=== PATIENT | female | born 1950 | race Caucasian/White ===

== ENCOUNTER 2018-01-13 03:57 | Inpatient (IN) | payer OTHER, BC ==
[2018-01-13 04:17] VITALS: BMI 42.4
--- NOTE | 2018-01-13 04:24 | PDOC ---
Attending Attestation - HPI HPI: 01/13/18 04:57 Patient is a 67 year old female with a significant past medical history of high cholesterol, hypertension, who presents to the ED with complaints of diarrhea and associated nausea that began earlier this week. Patient reports being prescribed new medication by her PCP which she states is the reason for her symptoms. She reports experiencing associated nausea, throat tightness and chest tightness after being recently being prescribed losartan, prompting her to come into the ED for further evaluation due to her concern. Denies chest pain, Sob. Denies nausea, vomiting. Denies fevers, chills. Denies contact with sick individuals, out of state travelling. Denies trauma to affected area. Denies dysuria, hematuria. Denies constipation, diarrhea. Denies any other symptoms. Allergies: None Social history: No smoking. No alcohol. No illicit drugs. Surgical history: None. PMD: Dr. Delaney <Mina Ernst - Last Filed: 01/13/18 04:57> - Resident Resident Name: Paul Crane - ED Attending Attestation I have performed the following: I have examined & evaluated the patient, The case was reviewed & discussed with the resident, I agree w/resident's findings & plan, Exceptions are as noted - Physicial Exam PE: 01/13/18 19:21 *Physical Exam General Appearance: Yes: Appropriately Dressed. No: Apparent Distress, Intoxicated HEENT: positive: EOMI, ARNOL, Normal ENT Inspection, Normal Voice, TMs Normal, Pharynx Normal. negative: Pale Conjunctivae, Photophobia, Scleral Icterus (R), Scleral Icterus (L) Neck: positive: Trachea midline, Normal Thyroid, Supple. negative: Tender, Rigid, Carotid bruit, Stridor, Lymphadenopathy (R), Lymphadenopathy (L), Thyromegaly Respiratory/Chest: positive: Lungs Clear, Normal Breath Sounds. negative: Chest Tender, Respiratory Distress, Accessory Muscle Use, Labored Respiration, RES, Crackles, Rales, Rhonchi, Stridor, Wheezing, Dullness Cardiovascular: positive: Regular Rhythm, Regular Rate, S1, S2. negative: Edema , JVD, Murmur, Bradycardia, Tachycardia Vascular Pulses: Dorsalis-Pedis (R): 2+, Doralis-Pedis (L): 2+ Gastrointestinal/Abdominal: positive: Normal Bowel Sounds, Flat, Soft. mild diffuse tenderness negative: Organomegaly, Pulsatile Mass, Increased Bowel Sounds, Decreased BS, Distended, Guarding, Rebound, Hernia, Hepatomegaly, Spleenomegaly Lymphatic: negative: Adenopathy, Tenderness Musculoskeletal: positive: Normal Inspection. negative: CVA Tenderness, Decreased Range of Motion Extremity: positive: Normal Capillary Refill, Normal Inspection, Normal Range of Motion, Pelvis Stable. negative: Tender, Pedal Edema, Swelling, Erythema Integumentary: positive: Normal Color, Dry, Warm. 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 negative: EOM Palsy, Facial Droop, Sensory Deficit - Medical Decision Making 01/13/18 19:22 Pt admitted for further care and evaluation. <Eris Long - Last Filed: 01/13/18 19:22>
[2018-01-13] MEDS ORDERED: SODIUM CHLORIDE 0.9% 500 ML INFUS.BAG IV ONE (04:32)
--- NOTE | 2018-01-13 04:36 | PDOC ---
History of Present Illness - General Chief Complaint: Pain Stated Complaint: ABD PAIN History Source: Patient Exam Limitations: No Limitations - History of Present Illness Initial Comments: The pt is a 67F with a history of HTN who presents for abdominal pain, nausea, and new onset diarrhea (x1 day). She reports that her PCP modified her HTN regimen 01/08/2018 to Valsartan and Triamterene-HCTZ. She took the medication for one day and began to experience throat swelling, chest tightness, and epigastric abdominal pain. She stopped taking these and her throat/chest tightness resolved. However, her epigastric discomfort persisted, continues to be associated with N, no emesis, and one day of watery loose stools without blood. She endorses dry mouth. She denies fevers/chills, current KEEN, CP, SOB, chest/throat tightness. Of note, once she stopped taking her new regimen she did not restart her Atenolol regimen and does not recall the dose. 01/13/18 04:35 Past History - Past Medical History Allergies/Adverse Reactions: Allergies Allergy/AdvReac Type Severity Reaction Status Date / Time No Known Drug Allergies Allergy Verified 01/13/18 04:16 Home Medications: Ambulatory Orders Atenolol [Tenormin -] 125 mg PO DAILY 05/22/15 Fluticasone Prop 0.05% Nasal [Flonase -] 2 spray NS PRN PRN 05/22/15 Montelukast Na [Singulair -] 10 mg PO DAILY 05/22/15 Oxycodone HCl/Acetaminophen [Percocet 5-325 mg Tablet] 1 tab PO Q6H PRN #60 tablet 05/24/15 Anemia: No Asthma: No Cancer: No Cardiac Disorders: No CVA: No COPD: No CHF: No Dementia: No Diabetes: No GI Disorders: No Disorders: No HTN: Yes Hypercholesterolemia: Yes Liver Disease: No Seizures: No Thyroid Disease: No - Surgical History Abdominal Surgery: No Appendectomy: No Cardiac Surgery: No Cholecystectomy: No Lung Surgery: No Neurologic Surgery: No Orthopedic Surgery: No - Suicide/Smoking/Psychosocial Hx Smoking Status: No Smoking History: Never smoked Have you smoked in the past 12 months: No Number of Cigarettes Smoked Daily: 0 If you are a former smoker, when did you quit?: 1999 Information on smoking cessation initiated: No Hx Alcohol Use: No Drug/Substance Use Hx: No Substance Use Type: None Hx Substance Use Treatment: No Review of Systems - Review of Systems Able to Perform ROS?: Yes Is the patient limited Lebanese proficient: No Constitutional: Yes: Loss of Appetite (2/2 nausea). No: Chills, Fever, Weakness HEENTM: Yes: See HPI. No: Blurred Vision, Double Vision, Nose Congestion Respiratory: No: Cough, Shortness of Breath Cardiac (ROS): No: Chest Pain, Lightheadedness, Syncope ABD/GI: Yes: Diarrhea, Nausea. No: Rectal Bleeding, Vomiting : No: Dysuria, Discharge, Hematuria Musculoskeletal: No: Joint Pain, Muscle Pain Integumentary: No: Pruritus, Rash Neurological: No: Headache, Numbness, Dizziness Psychiatric: No: Anxiety, Depression Endocrine: No: Intolerance to Cold, Intolerance to Heat Hematologic/Lymphatic: No: Blood Clots, Easy Bruising *Physical Exam - Vital Signs Last Vital Signs Temp Pulse Resp BP Pulse Ox 98.4 F 65 18 175/98 97 01/13/18 04:06 01/13/18 04:06 01/13/18 04:06 01/13/18 04:06 01/13/18 04:06 - Physical Exam General Appearance: Yes: Obese. No: Apparent Distress HEENT: positive: EOMI, RANOL. negative: Scleral Icterus (R), Scleral Icterus (L) , Pharyngeal Erythema, Rhinorrhea Neck: negative: Tender, Supple, Lymphadenopathy (R), Lymphadenopathy (L) Respiratory/Chest: positive: Lungs Clear, Normal Breath Sounds. negative: Chest Tender, Respiratory Distress Cardiovascular: positive: Regular Rhythm, Regular Rate, Edema (LLE 1+ pitting edema to [place]). negative: Murmur Vascular Pulses: Femoral (R): 2+, Femoral (L): 2+, Carotid (R): 2+, Carotid (L) : 2+, Dorsalis-Pedis (R): 2+, Doralis-Pedis (L): 2+ Gastrointestinal/Abdominal: positive: Normal Bowel Sounds, Tender (generalized mild TTP), Protuberent. negative: Guarding, Rebound Integumentary: positive: Normal Color, Dry, Warm. 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 DDx: KEITH, AIN, UTI, HTN urgency, ACS; less likely low grade SBO; gastritis ED Course The patient was found to have KEITH (Cr 3.4 from 0.6); and Uremia (BUN 54). A CT A &P w/o contrast will be obtained as well as an ECG and Trop I. The patient also experienced emesis x1, will give Zofran 4mg IV x1 Dispo: The patient will be admitted for evaluation of KEITH and Uremia 01/13/18 06:06 *DC/Admit/Observation/Transfer Diagnosis at time of Disposition: KEITH (acute kidney injury) - Discharge Dispostion Condition at time of disposition: Fair Decision to Admit order: Yes - Referrals - Patient Instructions - Post Discharge Activity
[2018-01-13 04:58] LABS: HEMATOCRIT 44.4 % (32.4-45.2); HEMOGLOBIN 14.5 GM/dL (10.7-15.3); MCH 26.7 pg (25.7-33.7); MCHC 32.7 g/dl (32.0-36.0); MEAN CELL VOLUME 81.6 fl (80-96); MEAN PLT VOLUME 9.3 fl (7.5-11.1); PLATELET COUNT 250 K/MM3 (134-434); RBC 5.44 M/mm3 (3.60-5.2); RDW 14.5 % (11.6-15.6); WHITE BLOOD COUNT 7.5 K/mm3 (4.0-10.0)
[2018-01-13] MEDS ORDERED: MAG HYDROX/AL HYDROX/SIMETH 30 ML UNIT-DOSE CUP PO ONE (05:00)
[2018-01-13] MEDS ORDERED: MAG HYDROX/AL HYDROX/SIMETH 30 ML UNIT-DOSE CUP ONE (05:04)
[2018-01-13] MEDS ORDERED: ONDANSETRON 4 MG/2 ML VIAL IVPUSH ONE (05:20)
[2018-01-13] MEDS ORDERED: FAMOTIDINE 20 MG/50 ML IVPB 20 MG/50 ML MG IVPB ONE ×2 (05:20→05:32)
[2018-01-13 05:22] LABS: ANION GAP 7 (8-16); BLOOD UREA NITROGEN 54 mg/dL (7-18); CALCIUM 9.3 mg/dL (8.5-10.1); CHLORIDE 104 mmol/L (98-107); CO2 30 mmol/L (21-32); CREATININE 3.7 mg/dL (0.55-1.02); GLUCOSE,RANDOM 89 mg/dL (74-106); POTASSIUM 4.6 mmol/L (3.5-5.1); SODIUM 141 mmol/L (136-145)
[2018-01-13] MEDS ORDERED: ONDANSETRON 4 MG/2 ML VIAL ONE ×2 (05:27→10:08)
[2018-01-13 06:29] LABS: URINE APPEARANCE CLEAR; URINE BILIRUBIN NEGATIVE (<2.0 mg/dL); URINE COLOR STRAW; URINE GLUCOSE (UA) NEGATIVE (NEGATIVE); URINE KETONE NEGATIVE (NEGATIVE); URINE LEUK ESTERASE NEGATIVE (NEGATIVE); URINE NITRITE NEGATIVE (NEGATIVE); URINE PROTEIN NEGATIVE (NEGATIVE); URINE UROBILINOGEN NEGATIVE mg/dL (0.2-1.0)
--- NOTE | 2018-01-13 07:17 | HP ---
CHIEF COMPLAINT: Nausea, diarrhea PCP: Dr. Delaney HISTORY OF PRESENT ILLNESS: 67 year-old female with a PMH significant for HTN and HLD who presented to the ED with abdominal pain, nausea, and diarrhea. On 01/08/18 the patient's PCP modified her medication regimen by stopping atenolol and starting Verapamil and Triamterene-HCTZ. She took the medication for one day and experienced throat swelling, chest tightness, epigastric abdominal pain, and nausea. She stopped taking the medications and all of the symptoms resolved except the epigastric pain and nausea which continues. Patient also reports one day of watery, loose, non-bloody stools. Patient denies fever, sweats, chills. ER course was notable for: (1) BP 175/98-->130/80 (2) BUN/Cr 54/3.7 (3) UA negative Recent Travel: PAST MEDICAL HISTORY: Hypertension Hyperlipidemia PAST SURGICAL HISTORY: None reported Social History: Smoking: Never Alcohol: no Drugs: no Family History: Allergies No Known Drug Allergies Allergy (Verified 01/13/18 04:16) HOME MEDICATIONS: Per [facility] and patient: Verapramil SR 240mg daily - *new prescription Triamterene/HCTZ 37.5/25 daily - *new prescription Etodolac 400mg BID Atenolol/chlorthalidone 100/25 1/2 tab daily (stopped) Singulair 10mg QD REVIEW OF SYSTEMS CONSTITUTIONAL: Absent: fever, chills, diaphoresis, generalized weakness, malaise, loss of appetite, weight change HEENT: Absent: rhinorrhea, nasal congestion, throat pain, throat swelling, difficulty swallowing, mouth swelling, ear pain, eye pain, visual changes CARDIOVASCULAR: Absent: chest pain, syncope, palpitations, irregular heart rate, lightheadedness , peripheral edema RESPIRATORY: Absent: cough, shortness of breath, dyspnea with exertion, orthopnea, wheezing, stridor, hemoptysis GASTROINTESTINAL: +abdominal pain, nausea, diarrhea Absent: abdominal pain, abdominal distension, nausea, vomiting, diarrhea, constipation, melena, hematochezia GENITOURINARY: Absent: dysuria, frequency, urgency, hesitancy, hematuria, flank pain, genital pain MUSCULOSKELETAL: Absent: myalgia, arthralgia, joint swelling, back pain, neck pain SKIN: Absent: rash, itching, pallor HEMATOLOGIC/IMMUNOLOGIC: Absent: easy bleeding, easy bruising, lymphadenopathy, frequent infections ENDOCRINE: Absent: unexplained weight gain, unexplained weight loss, heat intolerance, cold intolerance NEUROLOGIC: Absent: headache, focal weakness or paresthesias, dizziness, unsteady gait, seizure, mental status changes, bladder or bowel incontinence PSYCHIATRIC: Absent: anxiety, depression, suicidal or homicidal ideation, hallucinations. PHYSICAL EXAMINATION Vital Signs - 24 hr 01/13/18 01/13/18 04:06 06:18 Temperature 98.4 F Pulse Rate 65 Pulse Rate [ 52 L Radial] Respiratory 18 16 Rate Blood Pressure 175/98 Blood Pressure 130/80 [Right Arm] O2 Sat by Pulse 97 97 Oximetry (%) GENERAL: Awake, alert, and fully oriented, in no acute distress. LUNGS: Breath sounds equal, clear to auscultation bilaterally. No wheezes, and no crackles. No accessory muscle use. HEART: Regular rate and rhythm, normal S1 and S2 ABDOMEN: Soft, nontender, not distended, normoactive bowel sounds MUSCULOSKELETAL: Normal range of motion at all joints. No bony deformities or tenderness. No CVA tenderness. UPPER EXTREMITIES: 2+ pulses, warm, well-perfused. No cyanosis. No clubbing. No peripheral edema. LOWER EXTREMITIES: 2+ pulses, warm, well-perfused. No calf tenderness. Trace bilateral edema NEUROLOGICAL: Cranial nerves II-XII intact. Normal speech. Normal gait. PSYCHIATRIC: Cooperative. Good eye contact. Appropriate mood and affect. SKIN: Warm, dry, normal turgor, no rashes or lesions noted, normal capillary refill. Laboratory Results - last 24 hr 01/13/18 01/13/18 01/13/18 04:47 04:47 06:10 WBC 7.5 RBC 5.44 H Hgb 14.5 Hct 44.4 MCV 81.6 MCH 26.7 MCHC 32.7 RDW 14.5 Plt Count 250 MPV 9.3 Sodium 141 Potassium 4.6 Chloride 104 Carbon Dioxide 30 Anion Gap 7 L BUN 54 H Creatinine 3.7 H Creat Clearance w eGFR 12.22 Random Glucose 89 Calcium 9.3 Urine Color Straw Urine Appearance Clear Urine pH 7.0 Ur Specific [place] 1.010 Urine Protein Negative Urine Glucose (UA) Negative Urine Ketones Negative Urine Blood Negative Urine Nitrite Negative Urine Bilirubin Negative Urine Urobilinogen Negative Ur Leukocyte Esterase Negative ASSESSMENT/PLAN: 67 year-old female with a PMH significant for HTN and HLD who presented to the ED with 5 days of abdominal pain, nausea and 1 day of diarrhea. Admitted for KEITH. KEITH --review of home med list (see above): HCTZ, chlorthalidone, and high dose NSAIDS daily --Cr 3.7, last available Cr 0.7 (2011) --urine studies pending --hold diuretics, NSAIDS, nephrotoxic agents --IV fluids --renal consult Hypertension --patient has been off all anti-hypertensives for about 5 days; stopped atenolol/chlorthalidone and started Valsartan and Trimaterine/HCTZ; that's when symptoms started --start atenolol 50mg daily --defer to Dr. Castro/Rhett for further management of BP Abdominal pain --afebrile, no leukocytosis --CT done, pending dictation NPO Visit type - Emergency Visit Emergency Visit: Yes ED Registration Date: 01/13/18 Care time: The patient presented to the Emergency Department on the above date and was hospitalized for further evaluation of their emergent condition. - New Patient This patient is new to me today: Yes Date on this admission: 01/13/18 - Critical Care Critical Care patient: No Hospitalist Screening - Colonoscopy Questionnaire Colonoscopy Questionnaire: Colonoscopy Questionnaire - Patient: 50 - 75 years old and never had a screening colonoscopy: Unknown History of colon or rectal polyps, or CA: Unknown History of IBD, Crohn's disease or UC: Unknown History of abdominal radiation therapy as a child: Unknown - Relative: 1 with colon or rectal CA, or polyps at age 60 or younger: Unknown Colon or rectal CA diagnosed at age 45 or younger: Unknown Multiple relatives with colon or rectal CA: Unknown - Outcome: Screening Result: Negative Screen
[2018-01-13] MEDS ORDERED: SODIUM CHLORIDE 1,000 ML IV STA (07:48)
--- NOTE | 2018-01-13 08:45 | PDOC ---
*Physical Exam - Vital Signs Last Vital Signs Temp Pulse Resp BP Pulse Ox 98.4 F 52 L 16 130/80 97 01/13/18 04:06 01/13/18 06:18 01/13/18 06:18 01/13/18 06:18 01/13/18 06:18 ED Treatment Course - LABORATORY CBC & Chemistry Diagram: 01/13/18 04:47 01/13/18 04:47 - ADDITIONAL ORDERS Additional order review: Laboratory Results 01/13/18 01/13/18 06:10 04:47 Sodium 141 Potassium 4.6 Chloride 104 Carbon Dioxide 30 Anion Gap 7 L BUN 54 H Creatinine 3.7 H Creat Clearance w eGFR 12.22 Random Glucose 89 Calcium 9.3 Troponin I < 0.02 Urine Color Straw Urine Appearance Clear Urine pH 7.0 Ur Specific [place] 1.010 Urine Protein Negative Urine Glucose (UA) Negative Urine Ketones Negative Urine Blood Negative Urine Nitrite Negative Urine Bilirubin Negative Urine Urobilinogen Negative Ur Leukocyte Esterase Negative 01/13/18 04:47 RBC 5.44 H MCV 81.6 MCHC 32.7 RDW 14.5 MPV 9.3 - Medications Given in the ED: ED Medications Discontinued Medications Generic Name Dose Route Start Last Admin Trade Name Freq PRN Reason Stop Dose Admin Al Hydroxide/Mg Hydroxide 30 ml 01/13/18 05:00 01/13/18 05:03 Mylanta Oral Suspension - PO 01/13/18 05:01 30 ml ONCE ONE Administration Famotidine/Sodium Chloride 20 mg in 50 mls @ 100 mls/hr 01/13/18 05:20 05:31 Pepcid 20 Mg Premixed Ivpb - IVPB 01/13/18 05:49 100 mls/hr ONCE ONE Administration Ondansetron HCl 4 mg 01/13/18 05:20 01/13/18 05:31 Zofran Injection IVPUSH 01/13/18 05:21 4 mg ONCE ONE Administration Sodium Chloride 1,000 ml 01/13/18 04:32 01/13/18 04:51 Normal Saline - IV 01/13/18 04:33 1,000 ml ONCE ONE Administration Medical Decision Making - Medical Decision Making 01/13/18 08:44 CT Read: Possible stone : Perinephric stranding with mild dilatation of the right ureter and a possible nonobstructing stone on the left distally as described above. Consider CT urogram or retrograde study. Findings on the right may represent a recently passed stone, extrinsic compression by a bulky uterus. Probable cyst within the left adnexa as described above, consider ultrasound imaging as clinically warranted. *DC/Admit/Observation/Transfer Diagnosis at time of Disposition: KEITH (acute kidney injury) - Discharge Dispostion Condition at time of disposition: Fair - Referrals - Patient Instructions - Post Discharge Activity
[2018-01-13] MEDS ORDERED: SODIUM CHLORIDE 1,000 ML IV SCH (08:48)
[2018-01-13] MEDS ORDERED: ACETAMINOPHEN 325 MG TABLET (FP) ONE (09:08)
[2018-01-13] MEDS: ACETAMINOPHEN 325 MG TABLET (FP) PO PRN ×2 (09:10→15:07)
[2018-01-13] MEDS ORDERED: ONDANSETRON 4 MG/2 ML VIAL IVPUSH PRN (09:26)
[2018-01-13] MEDS: HEPARIN NA (PORCINE) 5,000 UNITS/ML 1ML VIAL SQ SCH ×3 (10:00→21:05)
[2018-01-13] MEDS ORDERED: PANTOPRAZOLE 40 MG TABLET (FP) ONE (10:07)
[2018-01-13] MEDS ORDERED: MONTELUKAST NA 10 MG TABLET ONE (10:07)
[2018-01-13] MEDS: PANTOPRAZOLE 40 MG TABLET (FP) PO SCH (10:10)
[2018-01-13] MEDS: MONTELUKAST NA 10 MG TABLET PO SCH ×2 (10:10→21:05)
[2018-01-13 10:30] LABS: URINE CREATININE 38.3 mg/dL (20-320)
[2018-01-13] MEDS ORDERED: ATENOLOL 25 MG TABLET (FP) ONE ×2 (10:40→10:41)
[2018-01-13] MEDS: ATENOLOL 50 MG TABLET (FP) PO SCH (10:45)
--- NOTE | 2018-01-13 10:45 | CON.NEP ---
Consult Consult Specialty:: Nephrology Reason for Consultation:: KEITH - History of Present Illness Chief Complaint: nausea,vomiting, and diarrhea History of Present Illness: MS. Strong is a 67 y/o female who presents to [facility] ER with complaints of nausea/ diarrhea and abdominal pain for a few days. Patient states that her PCP started her on a new blood pressure medicine - Triamterene/HCTZ last friday and shortly after she started to develop adverse reactions: she said her tongue started to swell, her chest felt tight and she started having these GI symptoms. The swelling and chest pain has since subsided, however, the GI symptoms are still persisting. In the ER, her lbs were notable for a BUN/CR: of 54/3.7, which is new to the patient. IN review of [employer] her Cr back in 2011 was 0.7 and patient states she gets blood test every 6 months and has never been told of this issue. She also notes that her leg seems to be a bit more swollen than usual. She denies any CP/SOB/ and her abdominal pain has subsided just feeling slightly queasy. - History Source History Provided By: Patient - Past Medical History CLERICAL ADMINISTRATIVE ASSISTANT: Yes: Migraine Cardio/Vascular: Yes: HTN, Hyperlipdemia Psych: Yes: Depression (does not take any meds for depression ) - Past Surgical History Past Surgical History: Yes: Arthrosocopy (R shoulder ) - Alcohol/Substance Use Hx Alcohol Use: No History of Substance Use: reports: None - Smoking History Smoking history: Never smoked Have you smoked in the past 12 months: No Aproximately how many cigarettes per day: 0 If you are a former smoker, when did you quit?: 1999 - Social History Usual Living Arrangement: Alone ADL: Independent 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 Place of : [facility] Home Medications - Allergies Allergies/Adverse Reactions: Allergies Allergy/AdvReac Type Severity Reaction Status Date / Time No Known Drug Allergies Allergy Verified 01/13/18 04:16 - Home Medications Home Medications: Ambulatory Orders Atenolol [Tenormin -] 50 mg PO ASDIR 05/22/15 Montelukast Na [Singulair -] 10 mg PO DAILY 05/22/15 Atorvastatin Ca [Lipitor] 20 mg PO HS 01/13/18 Etodolac [Etodolac ER] 400 mg PO ASDIR 01/13/18 Family Disease History - Family Disease History Family Disease History: Heart Disease: Father (father is ), Other: Mother (mother past from alzheimers) Other Family History: family history of breast ca. Review of Systems - Review of Systems Cardiovascular: denies: Chest Pain, Palpitations Respiratory: denies: Cough Gastrointestinal: reports: Abdominal Pain (more epigastric region), Nausea, Vomiting (had 1 episode in the ER) Genitourinary: denies: Dysuria, Hematuria Neurological: reports: Headache Nephrology Consult - Height Height: 1.5 m - Weight Weight: 95.254 kg - BMI Body Mass Index (BMI): 42.4 - Lab Results CBC,BMP: CBC, BMP 01/13/18 04:47 01/13/18 04:47 Anion Gap: Anion Gap Anion Gap 7 (8-16) L 01/13/18 04:47 - Physical Examination Vital Signs: Vital Signs Temperature 98.4 F 01/13/18 04:06 Pulse Rate 48 L 01/13/18 10:15 Respiratory Rate 16 01/13/18 06:18 Blood Pressure 136/78 01/13/18 10:15 O2 Sat by Pulse Oximetry (%) 95 01/13/18 10:15 Constitutional: Yes: No Distress Cardiovascular: Yes: Regular Rate and Rhythm, S1, S2. No: Murmur Respiratory: Yes: CTA Bilaterally Gastrointestinal: Yes: Normal Bowel Sounds, Soft. No: Tenderness Edema: Yes Edema: LLE: Trace, RLE: Trace Neurological: Yes: Alert Problem List - Problems (1) Acute kidney injury Code(s): N17.9 - ACUTE KIDNEY FAILURE, UNSPECIFIED (2) Hypertension Code(s): I10 - ESSENTIAL (PRIMARY) HYPERTENSION (3) Abdominal pain Code(s): R10.9 - UNSPECIFIED ABDOMINAL PAIN Assessment/Plan KEITH: -will check RUTHY and ANCA -repeat U/A tomorrow -c/w fluids -monitor electrolytes
--- NOTE | 2018-01-13 11:21 | EKG ---
Test Reason : Blood Pressure : / mmHG Vent. Rate : 052 BPM Atrial Rate : 052 BPM P-R Int : 176 ms QRS Dur : 084 ms QT Int : 452 ms P-R-T Axes : 030 -15 035 degrees QTc Int : 420 ms SINUS BRADYCARDIA OTHERWISE NORMAL ECG Confirmed by MD HANNAH, PAULA ([id number]) on 01/13/2018 11:20:42 AM Referred By: Confirmed By:PAULA YOUNG MD
[2018-01-13] MEDS: SODIUM CHLORIDE 1,000 ML IV SCH (16:49)
--- NOTE | 2018-01-13 16:49 | PN ---
Teaching Attending Note Name of Resident: Marialuisa Belcher (Nephrology) ATTENDING PHYSICIAN STATEMENT I saw and evaluated the patient. I reviewed the resident's note and discussed the case with the resident. I agree with the resident's findings and plan as documented. Nephrology Pt is a 67 year old female with pmhx of HTN and migraine who presents to the ER with abdominal pain and diarrhea. She was found to be in acute renal failure and I was called to evaluate her. She denies shortness of breath. She denies history of CKD. He does use nsaids. She was started on valsartana nd triamterene with hctz. She had an allergic reaction to them associated with GI symptoms. The shortness of breath and chest tightness improved but her loose stools persisted. pmhx migraine htn ros loose stool allergies hctz triamterene family hx non contrib Current Medications Generic Name Dose Route Start Last Admin Trade Name Freq PRN Reason Stop Dose Admin Acetaminophen/Butalbital/Caffeine 1 tablet 01/13/18 16:33 Fioricet - PO Q6H PRN HEADACHE Atenolol 50 mg 01/13/18 10:15 01/13/18 10:45 Tenormin - PO 50 mg DAILY ERIKA Administration Heparin Sodium (Porcine) 5,000 unit 01/13/18 09:00 01/13/18 14:31 Heparin - SQ 5,000 unit TID ERIKA Administration Sodium Chloride 1,000 mls @ 50 mls/hr 01/13/18 16:15 Normal Saline - IV ASDIR ERIKA Montelukast Sodium 10 mg 01/13/18 10:00 01/13/18 10:10 Singulair - PO 10 mg HS ERIKA Administration Ondansetron HCl 4 mg 01/13/18 09:26 01/13/18 10:05 Zofran Injection IVPUSH 4 mg Q6H PRN Administration NAUSEA Pantoprazole Sodium 40 mg 01/13/18 10:00 01/13/18 10:10 Protonix - PO 40 mg DAILY ERIKA Administration Laboratory Tests 04/24/110801/13/18 07:32 11:20 04:47 RBC 5.44 H Creatinine 0.6 D 0.7 BUN Urine Protein Urine Blood Ur Random Sodium Urine Creatinine 01/13/18 01/13/18 01/13/18 04:47 06:10 09:32 RBC Creatinine 3.7 H BUN 54 H Urine Protein Negative Urine Blood Negative Ur Random Sodium 89 Urine Creatinine 38.3 Last Vital Signs Temp Pulse Resp BP Pulse Ox 98.2 F 56 L 20 159/80 95 01/13/18 15:49 01/13/18 15:49 01/13/18 15:49 01/13/18 15:49 01/13/18 13:20 cxr reviewed cardio s1s2 reg pulm clear GI soft, obese ext neg edema neuro awake and alert Impression 1. KEITH 2. HTN 3. allergic reaction 4. migraine 5. nephrolithiasis Plan - cont with fluids - repeat labs in am - check renal ultrasound - repeat ua - hold diuretics - will check nilsa and anca - attempt to obtain outpt labs from last week - will follow Dr Brewer
[2018-01-13 20:16] LABS: URINE APPEARANCE CLEAR; URINE BILIRUBIN NEGATIVE (<2.0 mg/dL); URINE COLOR STRAW; URINE GLUCOSE (UA) NEGATIVE (NEGATIVE); URINE KETONE NEGATIVE (NEGATIVE); URINE LEUK ESTERASE NEGATIVE (NEGATIVE); URINE NITRITE NEGATIVE (NEGATIVE); URINE PROTEIN NEGATIVE (NEGATIVE); URINE UROBILINOGEN NEGATIVE mg/dL (0.2-1.0)
[2018-01-14] MEDS: ACETAMINOPHEN/CAFFEINE/BUTALBITAL 1 TAB PO PRN ×3 (02:58→21:07)
[2018-01-14] MEDS: HEPARIN NA (PORCINE) 5,000 UNITS/ML 1ML VIAL SQ SCH ×3 (05:46→21:09)
[2018-01-14 08:27] LABS: EOS % 2.7 % (0-4.5); HEMOGLOBIN 13.9 GM/dL (10.7-15.3); LYMPH % 24.3 % (8-40); MCH 27.3 pg (25.7-33.7); MCHC 33.1 g/dl (32.0-36.0); MEAN CELL VOLUME 82.5 fl (80-96); MEAN PLT VOLUME 9.7 fl (7.5-11.1); MONO % 7.7 % (3.8-10.2); NEUT % 64.3 % (42.8-82.8); PLATELET COUNT 226 K/MM3 (134-434); RBC 5.09 M/mm3 (3.60-5.2); RDW 14.5 % (11.6-15.6); WHITE BLOOD COUNT 6.3 K/mm3 (4.0-10.0)
[2018-01-14 08:39] LABS: INR 1.13 (0.82-1.09); PROTHROMBIN TIME (PATIENT) 12.8 SEC (9.7-13.0)
[2018-01-14 08:42] LABS: ACTIVATED PTT 34.1 SECONDS (25.2-36.5)
[2018-01-14 08:52] LABS: ALBUMIN 3.1 g/dl (3.4-5.0); ANION GAP 8 (8-16); BLOOD UREA NITROGEN 39 mg/dL (7-18); CALCIUM 8.2 mg/dL (8.5-10.1); CHLORIDE 109 mmol/L (98-107); CO2 27 mmol/L (21-32); GLUCOSE,RANDOM 72 mg/dL (74-106); MAGNESIUM 2.6 mg/dL (1.8-2.4); SGOT/AST 21 U/L (15-37); SGPT/ALT 26 U/L (12-78); SODIUM 144 mmol/L (136-145)
[2018-01-14 08:54] LABS: ALK PHOS 55 U/L (45-117); BILIRUBIN,TOTAL 0.7 mg/dL (0.2-1.0); TOT PROT 6.3 g/dl (6.4-8.2)
--- NOTE | 2018-01-14 09:32 | PN ---
Progress Note, Physician Chief Complaint: high BUN/Cr History of Present Illness: no acute events overnight. patient states that her GI symptoms are resolving- she is not experiencing anymore nausea or diarrhea. She had a slight headache overnight- seems to be in concordance whenever her blood pressures rise. She is not having any pain or trouble urinating. she denies N/V/chest pain/SOB. Renal and bladder U/S showed no signs of hydronephrosis and no postvoid residual urine was present. - Current Medication List Current Medications: Active Medications Acetaminophen/Butalbital/Caffeine (Fioricet -) 1 tablet PO Q6H PRN PRN Reason: HEADACHE Last Admin: 01/14/18 02:58 Dose: 1 tablet Atenolol (Tenormin -) 50 mg PO DAILY [facility] Last Admin: 01/13/18 10:45 Dose: 50 mg Heparin Sodium (Porcine) (Heparin -) 5,000 unit SQ TID [facility] Last Admin: 01/14/18 05:46 Dose: 5,000 unit Sodium Chloride (Normal Saline -) 1,000 mls @ 50 mls/hr IV ASDIR ERIKA Last Admin: 01/13/18 16:49 Dose: 50 mls/hr Montelukast Sodium (Singulair -) 10 mg PO HS [facility] Last Admin: 01/13/18 21:05 Dose: 10 mg Ondansetron HCl (Zofran Injection) 4 mg IVPUSH Q6H PRN PRN Reason: NAUSEA Last Admin: 01/13/18 10:05 Dose: 4 mg Pantoprazole Sodium (Protonix -) 40 mg PO DAILY [facility] Last Admin: 01/13/18 10:10 Dose: 40 mg - Objective Vital Signs: Vital Signs Temperature 98 F 01/14/18 06:22 Pulse Rate 46 L 01/14/18 06:22 Respiratory Rate 20 01/14/18 06:22 Blood Pressure 164/71 01/14/18 06:22 O2 Sat by Pulse Oximetry (%) 96 01/13/18 21:00 Constitutional: Yes: No Distress Cardiovascular: Yes: Regular Rate and Rhythm, S1, S2. No: Murmur Respiratory: Yes: CTA Bilaterally Gastrointestinal: Yes: Normal Bowel Sounds, Soft. No: Tenderness Edema: No (no LE edema ) Neurological: Yes: Alert Labs: CBC, BMP 07/18/18 06:50 01/14/18 06:50 INR, PTT INR 1.13 (0.82-1.09) 01/14/18 06:50 - ....Imaging Ultrasound: Report Reviewed Problem List - Problems (1) Acute kidney injury Code(s): N17.9 - ACUTE KIDNEY FAILURE, UNSPECIFIED (2) Hypertension Code(s): I10 - ESSENTIAL (PRIMARY) HYPERTENSION (3) Abdominal pain Code(s): R10.9 - UNSPECIFIED ABDOMINAL PAIN Assessment/Plan KEITH: patients Cr this morning came down from 3.7 to 3.0 and GI symptoms have since resolved -ANCA and RUTHY still pending -U/S showed no signs of obstruction -cont with fluids -monitor CMP
[2018-01-14] MEDS: ATENOLOL 50 MG TABLET (FP) PO SCH (09:38)
[2018-01-14] MEDS: PANTOPRAZOLE 40 MG TABLET (FP) PO SCH (09:38)
[2018-01-14] MEDS: SODIUM CHLORIDE 1,000 ML IV SCH (09:39)
--- NOTE | 2018-01-14 11:24 | HP ---
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: Yes: Migraine Cardiovascular: Yes: HTN, Hyperlipdemia ...LMP Comment: 2003 ...: No Psych: Yes: Depression (does not take any meds for depression ) - Past Surgical History Past Surgical History: Yes: Arthrosocopy (R shoulder ) - Smoking History Smoking history: Never smoked Have you smoked in the past 12 months: No Aproximately how many cigarettes per day: 0 If you are a former smoker, when did you quit?: 1999 - Alcohol/Substance Use Hx Alcohol Use: No History of Substance Use: reports: None - Social History ADL: Independent 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 Home Medications - Allergies Allergies/Adverse Reactions: Allergies Allergy/AdvReac Type Severity Reaction Status Date / Time No Known Drug Allergies Allergy Verified 01/13/18 04:16 - Home Medications Home Medications: Ambulatory Orders Atenolol [Tenormin -] 50 mg PO ASDIR 05/22/15 Montelukast Na [Singulair -] 10 mg PO DAILY 05/22/15 Atorvastatin Ca [Lipitor] 20 mg PO HS 01/13/18 Etodolac [Etodolac ER] 400 mg PO ASDIR 01/13/18 Family Disease History - Family Disease History Family Disease History: Heart Disease: Father (father is ), Other: Mother (mother past from alzheimers) Other Family History: family history of breast ca. Physical Examination Vital Signs: Vital Signs Temperature 97.8 F 01/14/18 10:00 Pulse Rate 54 L 01/14/18 10:00 Respiratory Rate 18 01/14/18 10:00 Blood Pressure 173/70 01/14/18 10:00 O2 Sat by Pulse Oximetry (%) 95 01/14/18 09:00 Labs: CBC, BMP 01/14/18 06:50 01/14/18 06:50
--- NOTE | 2018-01-14 11:25 | PN ---
Progress Note, Physician Chief Complaint: no complaints straining all urine - Current Medication List Current Medications: Active Medications Acetaminophen/Butalbital/Caffeine (Fioricet -) 1 tablet PO Q6H PRN PRN Reason: HEADACHE Last Admin: 01/14/18 02:58 Dose: 1 tablet Atenolol (Tenormin -) 50 mg PO DAILY [facility] Last Admin: 01/14/18 09:38 Dose: 50 mg Heparin Sodium (Porcine) (Heparin -) 5,000 unit SQ TID [facility] Last Admin: 01/14/18 05:46 Dose: 5,000 unit Sodium Chloride (Normal Saline -) 1,000 mls @ 50 mls/hr IV ASDIR [facility] Last Admin: 01/14/18 09:39 Dose: 50 mls/hr Montelukast Sodium (Singulair -) 10 mg PO HS [facility] Last Admin: 01/13/18 21:05 Dose: 10 mg Ondansetron HCl (Zofran Injection) 4 mg IVPUSH Q6H PRN PRN Reason: NAUSEA Last Admin: 01/13/18 10:05 Dose: 4 mg Pantoprazole Sodium (Protonix -) 40 mg PO DAILY [facility] Last Admin: 01/14/18 09:38 Dose: 40 mg - Objective Vital Signs: Vital Signs Temperature 97.8 F 01/14/18 10:00 Pulse Rate 54 L 01/14/18 10:00 Respiratory Rate 18 01/14/18 10:00 Blood Pressure 173/70 01/14/18 10:00 O2 Sat by Pulse Oximetry (%) 95 01/14/18 09:00 Constitutional: Yes: No Distress, Calm Cardiovascular: Yes: Regular Rate and Rhythm Respiratory: Yes: CTA Bilaterally Gastrointestinal: Yes: Normal Bowel Sounds, Soft. No: Tenderness Edema: No Labs: CBC, BMP 01/14/18 06:50 01/14/18 06:50 INR, PTT INR 1.13 (0.82-1.09) 01/14/18 06:50 Problem List - Problems (1) Acute kidney injury Code(s): N17.9 - ACUTE KIDNEY FAILURE, UNSPECIFIED (2) Hypertension Code(s): I10 - ESSENTIAL (PRIMARY) HYPERTENSION Assessment/Plan PLAN non obstructive stone on CT Urology eval Her creatinine on 01/06/18-- 1.2 iv fluids avoid nephrotoxic drugs add Hydralazine - for better BP control
--- NOTE | 2018-01-14 12:26 | PN ---
Teaching Attending Note Name of Resident: Marialuisa Belcher (Nephrology) ATTENDING PHYSICIAN STATEMENT I saw and evaluated the patient. I reviewed the resident's note and discussed the case with the resident. I agree with the resident's findings and plan as documented. Renal Pt seen and examined at bedside. She is awake and alert. She denies shortness of breath Current Medications Generic Name Dose Route Start Last Admin Trade Name Freq PRN Reason Stop Dose Admin Acetaminophen/Butalbital/Caffeine 1 tablet 01/13/18 16:33 01/14/18 02:58 Fioricet - PO 1 tablet Q6H PRN Administration HEADACHE Atenolol 50 mg 01/13/18 10:15 01/14/18 09:38 Tenormin - PO 50 mg DAILY ERIKA Administration Heparin Sodium (Porcine) 5,000 unit 01/13/18 09:00 01/14/18 05:46 Heparin - SQ 5,000 unit TID ERIKA Administration Sodium Chloride 1,000 mls @ 50 mls/hr 01/13/18 16:15 01/14/18 09:39 Normal Saline - IV 50 mls/hr ASDIR ERIKA Administration Montelukast Sodium 10 mg 01/13/18 10:00 01/13/18 21:05 Singulair - PO 10 mg HS ERIKA Administration Ondansetron HCl 4 mg 01/13/18 09:26 01/13/18 10:05 Zofran Injection IVPUSH 4 mg Q6H PRN Administration NAUSEA Pantoprazole Sodium 40 mg 01/13/18 10:00 01/14/18 09:38 Protonix - PO 40 mg DAILY ERIKA Administration Laboratory Tests 01/13/18 01/13/18 01/14/18 04:47 19:15 06:50 Creatinine 3.7 H 3.0 H Urine Protein Negative Urine Blood Negative RUTHY Screen c-ANCA Proteinase 3 (PR3) p-ANCA Atypical p-ANCA Myeloperoxidase Ab 01/14/18 06:50 Creatinine Urine Protein Urine Blood RUTHY Screen Pending c-ANCA Pending Proteinase 3 (PR3) Pending p-ANCA Pending Atypical p-ANCA Pending Myeloperoxidase Ab Pending Last Vital Signs Temp Pulse Resp BP Pulse Ox 97.8 F 54 L 18 173/70 95 01/14/18 10:00 01/14/18 10:00 01/14/18 10:00 01/14/18 10:00 01/14/18 09:00 cardio s1s2 reg pulm clear GI soft, obese ext neg edema neuro awake and alert Impression 1. KEITH 2. HTN 3. allergic reaction 4. migraine 5. 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
[2018-01-14] MEDS ORDERED: hydrALAZINE HCL 10 MG TABLET PO SCH (12:30)
[2018-01-14] MEDS ORDERED: SODIUM CHLORIDE 0.45% 1,000 ML IV SCH (12:30)
[2018-01-14] MEDS: hydrALAZINE HCL 10 MG TABLET PO SCH ×2 (13:20→21:09)
[2018-01-14] MEDS ORDERED: PT OWN MED DRAWER 7, Y5N ONE ×2 (13:33→21:01)
--- NOTE | 2018-01-14 14:22 | CON.GU ---
Consult Consult Specialty:: Urology Reason for Consultation:: ARF - History of Present Illness Chief Complaint: Pt w recent flank pain currently asymptomatic History of Present Illness: 67 yo male w ARF and pain on admission. 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 Cardio/Vascular: Yes: HTN, Hyperlipdemia ...LMP Comment: 2004 ...: No Psych: Yes: Depression (does not take any meds for depression ) - Past Surgical History Past Surgical History: Yes: Arthrosocopy (R shoulder ) - Alcohol/Substance Use Hx Alcohol Use: No History of Substance Use: reports: None - Smoking History Smoking history: Never smoked Have you smoked in the past 12 months: No Aproximately how many cigarettes per day: 0 If you are a former smoker, when did you quit?: 1999 - Social History Usual Living Arrangement: Alone ADL: Independent 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 Home Medications - Allergies Allergies/Adverse Reactions: Allergies Allergy/AdvReac Type Severity Reaction Status Date / Time No Known Drug Allergies Allergy Verified 01/13/18 04:16 - Home Medications Home Medications: Ambulatory Orders Atenolol [Tenormin -] 50 mg PO ASDIR 05/22/15 Montelukast Na [Singulair -] 10 mg PO DAILY 05/22/15 Atorvastatin Ca [Lipitor] 20 mg PO HS 01/13/18 Etodolac [Etodolac ER] 400 mg PO ASDIR 01/13/18 Family Disease History - Family Disease History Family Disease History: Heart Disease: Father (father is ), Other: Mother (mother past from alzheimers) Other Family History: family history of breast ca. Physical Exam- Vital Signs: Vital Signs Temperature 97.8 F 01/14/18 10:00 Pulse Rate 54 L 01/14/18 10:00 Respiratory Rate 18 01/14/18 10:00 Blood Pressure 173/70 01/14/18 10:00 O2 Sat by Pulse Oximetry (%) 95 01/14/18 09:00 Labs: CBC, BMP 01/14/18 06:50 01/14/18 06:50 Imaging - Results Cat Scan: Report Reviewed Ultrasound: Report Reviewed Problem List - Problems (1) Acute kidney injury Assessment/Plan: Clinical picture c/w passed stone cr improving. May require renal eval as one sided obstruction should not cause renal failure Cont to follow cr If dev pain or cr increases will require renal scan w lasix Code(s): N17.9 - ACUTE KIDNEY FAILURE, UNSPECIFIED
[2018-01-14] MEDS: MONTELUKAST NA 10 MG TABLET PO SCH (21:09)
[2018-01-15] MEDS: HEPARIN NA (PORCINE) 5,000 UNITS/ML 1ML VIAL SQ SCH (06:31)
[2018-01-15 08:09] VITALS: BP 153/75; PULSE 47; TEMP 97.5
[2018-01-15] MEDS ORDERED: PT OWN MED DRAWER 7, Y5N ONE (09:33)
[2018-01-15] MEDS: hydrALAZINE HCL 10 MG TABLET PO SCH (09:37)
[2018-01-15] MEDS: ATENOLOL 50 MG TABLET (FP) PO SCH (09:37)
[2018-01-15] MEDS: PANTOPRAZOLE 40 MG TABLET (FP) PO SCH (09:37)
[2018-01-15 09:56] LABS: BASO % 1.3 % (0-2.0); EOS % 3.1 % (0-4.5); HEMATOCRIT 41.6 % (32.4-45.2); HEMOGLOBIN 13.7 GM/dL (10.7-15.3); LYMPH % 25.1 % (8-40); MCH 27.3 pg (25.7-33.7); MCHC 32.9 g/dl (32.0-36.0); MEAN PLT VOLUME 9.6 fl (7.5-11.1); MONO % 6.3 % (3.8-10.2); NEUT % 64.2 % (42.8-82.8); PLATELET COUNT 221 K/MM3 (134-434); RBC 5.01 M/mm3 (3.60-5.2); RDW 14.3 % (11.6-15.6); WHITE BLOOD COUNT 6.9 K/mm3 (4.0-10.0)
[2018-01-15 10:38] LABS: ALBUMIN 3.2 g/dl (3.4-5.0); ANION GAP 7 (8-16); BILIRUBIN,TOTAL 0.5 mg/dL (0.2-1.0); BLOOD UREA NITROGEN 35 mg/dL (7-18); CALCIUM 8.3 mg/dL (8.5-10.1); CHLORIDE 108 mmol/L (98-107); CO2 27 mmol/L (21-32); CREATININE 2.6 mg/dL (0.55-1.02); GLUCOSE,RANDOM 94 mg/dL (74-106); MAGNESIUM 2.3 mg/dL (1.8-2.4); POTASSIUM 3.5 mmol/L (3.5-5.1); SGOT/AST 20 U/L (15-37); SGPT/ALT 24 U/L (12-78); SODIUM 142 mmol/L (136-145); TOT PROT 6.6 g/dl (6.4-8.2)
[2018-01-15 10:39] LABS: ALK PHOS 54 U/L (45-117)
--- NOTE | 2018-01-15 10:43 | PN ---
Progress Note, Physician Chief Complaint: feels well decreased headaches No nausea Appetite good - Current Medication List Current Medications: Active Medications Acetaminophen/Butalbital/Caffeine (Fioricet -) 1 tablet PO Q6H PRN PRN Reason: HEADACHE Last Admin: 01/14/18 21:07 Dose: 1 tablet Atenolol (Tenormin -) 50 mg PO DAILY [facility] Last Admin: 01/15/18 09:37 Dose: 50 mg Heparin Sodium (Porcine) (Heparin -) 5,000 unit SQ TID [facility] Last Admin: 01/15/18 06:31 Dose: 5,000 unit Hydralazine HCl (Apresoline -) 10 mg PO BID [facility] Last Admin: 01/15/18 09:37 Dose: 10 mg Sodium Chloride (1/2 Normal Saline) 1,000 mls @ 83 mls/hr IV ASDIR [facility] Last Admin: 01/14/18 13:20 Dose: 83 mls/hr Montelukast Sodium (Singulair -) 10 mg PO HS [facility] Last Admin: 01/14/18 21:09 Dose: 10 mg Ondansetron HCl (Zofran Injection) 4 mg IVPUSH Q6H PRN PRN Reason: NAUSEA Last Admin: 01/13/18 10:05 Dose: 4 mg Pantoprazole Sodium (Protonix -) 40 mg PO DAILY [facility] Last Admin: 01/15/18 09:37 Dose: 40 mg - Objective Vital Signs: Vital Signs Temperature 97.5 F L 01/15/18 08:08 Pulse Rate 47 L 01/15/18 08:08 Respiratory Rate 17 01/15/18 08:08 Blood Pressure 153/75 01/15/18 08:08 O2 Sat by Pulse Oximetry (%) 95 01/14/18 09:00 Constitutional: Yes: No Distress, Calm Cardiovascular: Yes: Regular Rate and Rhythm Respiratory: Yes: CTA Bilaterally Gastrointestinal: Yes: Normal Bowel Sounds, Soft, Abdomen, Obese. No: Tenderness Edema: LLE: Trace, RLE: Trace Labs: CBC, BMP 01/15/18 09:10 INR, PTT INR 1.13 (0.82-1.09) 01/14/18 06:50 Problem List - Problems (1) Acute kidney injury Code(s): N17.9 - ACUTE KIDNEY FAILURE, UNSPECIFIED (2) Hypertension Code(s): I10 - ESSENTIAL (PRIMARY) HYPERTENSION (3) Migraines Code(s): G43.909 - MIGRAINE, UNSP, NOT INTRACTABLE, WITHOUT STATUS MIGRAINOSUS Assessment/Plan PLAN non obstructive stone on CT Urology eval appreciated Her creatinine on 01/06/18-- 1.2 iv fluids BMP pending avoid nephrotoxic drugs added Hydralazine - BP control better
--- NOTE | 2018-01-15 10:53 | PN ---
Progress Note, Physician Chief Complaint: im feeling good History of Present Illness: no acute events overnight. patient states she is feeling well. her headaches have improved and she is no longer experiencing any GI symptoms; she is not having any trouble urinating. she denies any CP/SOB/N/V - Current Medication List Current Medications: Active Medications Acetaminophen/Butalbital/Caffeine (Fioricet -) 1 tablet PO Q6H PRN PRN Reason: HEADACHE Last Admin: 01/14/18 21:07 Dose: 1 tablet Atenolol (Tenormin -) 50 mg PO DAILY [facility] Last Admin: 01/15/18 09:37 Dose: 50 mg Heparin Sodium (Porcine) (Heparin -) 5,000 unit SQ TID [facility] Last Admin: 01/15/18 06:31 Dose: 5,000 unit Hydralazine HCl (Apresoline -) 10 mg PO BID [facility] Last Admin: 01/15/18 09:37 Dose: 10 mg Sodium Chloride (1/2 Normal Saline) 1,000 mls @ 83 mls/hr IV ASDIR [facility] Last Admin: 01/14/18 13:20 Dose: 83 mls/hr Montelukast Sodium (Singulair -) 10 mg PO HS [facility] Last Admin: 01/14/18 21:09 Dose: 10 mg Ondansetron HCl (Zofran Injection) 4 mg IVPUSH Q6H PRN PRN Reason: NAUSEA Last Admin: 01/13/18 10:05 Dose: 4 mg Pantoprazole Sodium (Protonix -) 40 mg PO DAILY [facility] Last Admin: 01/15/18 09:37 Dose: 40 mg - Objective Vital Signs: Vital Signs Temperature 97.5 F L 01/15/18 08:08 Pulse Rate 47 L 01/15/18 08:08 Respiratory Rate 17 01/15/18 08:08 Blood Pressure 153/75 01/15/18 08:08 O2 Sat by Pulse Oximetry (%) 95 01/14/18 09:00 Constitutional: Yes: No Distress Cardiovascular: Yes: Regular Rate and Rhythm, S1, S2 Respiratory: Yes: CTA Bilaterally Gastrointestinal: Yes: Normal Bowel Sounds, Soft. No: Tenderness Edema: No (no LE edema ) Neurological: Yes: Alert, Oriented Labs: CBC, BMP 01/15/18 09:10 INR, PTT INR 1.13 (0.82-1.09) 01/14/18 06:50 Problem List - Problems (1) Acute kidney injury Code(s): N17.9 - ACUTE KIDNEY FAILURE, UNSPECIFIED (2) Hypertension Code(s): I10 - ESSENTIAL (PRIMARY) HYPERTENSION (3) Abdominal pain Code(s): R10.9 - UNSPECIFIED ABDOMINAL PAIN Assessment/Plan patients renal function is improving: her most recent Cr from yesterday was 3.0 down from 3.7 on admission obtained previous labs and Cr from 01/06/18 was 1.2 -CMP pending; will continue to trend Cr -c/w IV fluids -ANCA and RUTHY still pending
--- NOTE | 2018-01-15 11:09 | DS ---
Physical Examination Vital Signs: Vital Signs Temperature 97.5 F L 01/15/18 08:08 Pulse Rate 47 L 01/15/18 08:08 Respiratory Rate 17 01/15/18 08:08 Blood Pressure 153/75 01/15/18 08:08 O2 Sat by Pulse Oximetry (%) 95 01/14/18 09:00 Constitutional: Yes: No Distress, Calm Cardiovascular: Yes: Regular Rate and Rhythm Respiratory: Yes: CTA Bilaterally Gastrointestinal: Yes: Normal Bowel Sounds, Soft. No: Tenderness Edema: No Labs: CBC, BMP 01/15/18 09:10 01/15/18 09:10 Discharge Summary Reason For Visit: KEITH, UREMIA Current Active Problems Abdominal pain (Acute) Acute kidney injury (Acute) Hypertension (Acute) Migraines (Acute) Hospital Course: Admitted for acute kidney injury CT abd-- non obstructing stone Seen by Renal and Urology Renal failure likely due to meds, dehydration, possible passed renal stone Creatinine better -- 2.6 pt encouraged to drink fluids, avoid nephrotoxic drugs will need to follow up with Dr Brewer in the office next week- stable for dc home BP better controlled Condition: Fair - Instructions Referrals: Richard Delaney MD [Primary Care Provider] - Waldo Brewer MD [Staff Physician] - Disposition: HOME - Home Medications Comprehensive Discharge Medication List: Ambulatory Orders Atenolol [Tenormin -] 50 mg PO ASDIR 05/22/15 Montelukast Na [Singulair -] 10 mg PO DAILY 05/22/15 Atorvastatin Ca [Lipitor] 20 mg PO HS 01/13/18 Etodolac [Etodolac ER] 400 mg PO ASDIR 01/13/18
--- NOTE | 2018-01-15 15:24 | PN ---
Teaching Attending Note Name of Resident: Marialuisa Belcher (Nephrology) ATTENDING PHYSICIAN STATEMENT I saw and evaluated the patient. I reviewed the resident's note and discussed the case with the resident. I agree with the resident's findings and plan as documented. Pt is eager to go home. She denies shortness of breath. Last Vital Signs Temp Pulse Resp BP Pulse Ox 97.5 F L 47 L 17 153/75 95 01/15/18 08:08 01/15/18 08:08 01/15/18 08:08 01/15/18 08:08 01/15/18 09:00 Laboratory Tests 01/13/18 01/14/18 19:15 06:50 Urine Protein Negative Urine Blood Negative RUTHY Screen Pending c-ANCA Pending Proteinase 3 (PR3) Pending p-ANCA Pending Atypical p-ANCA Pending Myeloperoxidase Ab Pending cardio s1s2 reg pulm clear GI soft, obese ext neg edema neuro awake and alert Impression 1. KEITH 2. HTN 3. allergic reaction 4. migraine 5. 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
[2018-01-17 00:07] LABS: ATYPICAL pANCA <1:20 titer (Neg:<1:20); C-ANCA <1:20 titer (Neg:<1:20); P-ANCA <1:20 titer (Neg:<1:20); PROTEINASE-3 ANTIBODY <3.5 U/mL (0.0-3.5)
== END 2018-01-15 15:07 | disposition home or self-care (01) | DRG 683 ==
LOC: JER 03:57 → JERBED 07:19 → J8W 12:55
PROVIDERS: ADMIT Internal Medicine; ATTEND Internal Medicine
DX: N17.9 Acute kidney failure, unspecified (principal); Z68.41 Body mass index [BMI] 40.0-44.9, adult; I10 Essential (primary) hypertension; R10.9 Unspecified abdominal pain; G43.909 Migraine, unspecified, not intractable, without status migrainosus; N20.0 Calculus of kidney; E86.0 Dehydration; E78.5 Hyperlipidemia, unspecified; E66.9 Obesity, unspecified
CPT/HCPCS: 36415; 71045-TC-FY; 74176-TC; 76775-TC; 76856-TC; 80048; 80053; 81003; 82570; 83520; 83735; 84300; 84484; 84540; 85025; 85027; 85610; 85730; 86038; 86256; 93005; 93010; 99282-25; J1644; J7030

== ENCOUNTER 2018-03-04 19:06 | Emergency (ER) | payer OTHER, BC ==
--- NOTE | 2018-03-04 19:20 | PDOC ---
Rapid Medical Evaluation Time Seen by Provider: 03/04/18 19:19 Medical Evaluation: Allergies Allergy/AdvReac Type Severity Reaction Status Date / Time No Known Drug Allergies Allergy Verified 01/13/18 04:16 03/04/18 19:19 pt c/O; clogged left ear, denies injury or foreign body pt denies headache, fever pt on brief exam: no drainage, vss pt ordered for: none pt to proceed to the ED Discharge Disposition - Diagnosis Clogged ear - Referrals - Patient Instructions - Post Discharge Activity
[2018-03-04 19:22] VITALS: BP 149/88; PULSE 69; TEMP 98.2; BMI 40.4
--- NOTE | 2018-03-04 20:41 | PDOC ---
History of Present Illness - General Chief Complaint: Ear Problem Stated Complaint: EAR PROBLEM Time Seen by Provider: 03/04/18 19:19 - History of Present Illness Initial Comments: 67-year-old female with left ear decreased hearing times one day without other associated symptoms she has a past medical history significant for hypertension. 03/04/18 20:37 Past History - Past Medical History Allergies/Adverse Reactions: Allergies Allergy/AdvReac Type Severity Reaction Status Date / Time No Known Drug Allergies Allergy Verified 03/04/18 19:22 Home Medications: Ambulatory Orders Montelukast Na [Singulair -] 10 mg PO DAILY 05/22/15 Atorvastatin Ca [Lipitor] 20 mg PO HS 01/13/18 Acetaminophen/Caffeine/Butalb [Fioricet -] 1 tablet PO Q8H PRN #30 tablet MDD 3 01/15/18 Atenolol [Tenormin -] 50 mg PO DAILY #30 tablet 01/15/18 Ciprofloxacin HCl/Dexameth [Ciprodex Otic Suspension] 4 drop BID 5 Days #1 bottle 03/04/18 Furosemide [Lasix -] 20 mg PO DAILY 03/04/18 Irbesartan 150 mg PO ASDIR 03/04/18 Anemia: No Asthma: No Cancer: No Cardiac Disorders: No CVA: No COPD: No CHF: No Dementia: No Diabetes: No GI Disorders: Yes Disorders: No HTN: Yes Hypercholesterolemia: Yes Liver Disease: No Seizures: No Thyroid Disease: No - Surgical History Abdominal Surgery: No Appendectomy: No Cardiac Surgery: No Cholecystectomy: No Lung Surgery: No Neurologic Surgery: No Orthopedic Surgery: No - Suicide/Smoking/Psychosocial Hx Smoking Status: No Smoking History: Never smoked Have you smoked in the past 12 months: No Number of Cigarettes Smoked Daily: 0 If you are a former smoker, when did you quit?: 1999 Hx Alcohol Use: No Drug/Substance Use Hx: No Substance Use Type: None Hx Substance Use Treatment: No Review of Systems - Review of Systems HEENTM: Yes: See HPI All Other Systems: Reviewed and Negative *Physical Exam - Vital Signs Last Vital Signs Temp Pulse Resp BP Pulse Ox 98.2 F 69 18 149/88 96 03/04/18 19:09 03/04/18 19:09 03/04/18 19:09 03/04/18 19:03/04/18 19:09 - Physical Exam Comments: HEAD: NC/AT EYES: Conjuntiva clear Ears: Right ear and tympanic membrane are normal left ear shows impacted cerumen NOSE: No d/c THROAT: Moist mucous membrances, oral pharanx clear, uvula midline NECK: Supple without adenopathy CARDIAC: S1 S2 LUNGS: CTA Full and Equal breath sounds ABDOMEN: Soft NT ND MS: Full ROM in all joints without edema NEUROLOGIC: No gross sensory or motor deficits, NVID SKIN: Normal color and temperature no lesions or rashes 03/04/18 20:38 Medical Decision Making - Medical Decision Making The left ear was irrigated with half-saline and half hydrogen peroxide 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 I will prescribe her an antibiotic she otherwise tolerated this very well and had relief of symptoms and return of hearing 03/04/18 20:38 *DC/Admit/Observation/Transfer Diagnosis at time of Disposition: Clogged ear, Excessive cerumen in left ear canal - Discharge Dispostion Disposition: HOME Condition at time of disposition: Improved Decision to Admit order: No - Referrals Referrals: Richard Delaney MD [Primary Care Provider] - - Patient Instructions Printed Discharge Instructions: DI for Cerumen Impaction, Cerumen Impaction Additional Instructions: Use the antibiotic drops as directed. Follow-up with your primary care physician 2-3 days for further evaluation and treatment options. - Post Discharge Activity
== END 2018-03-04 21:02 | disposition home or self-care (01) ==
LOC: JERFT 19:06
PROC: 3E1B78Z Irrigation of Ear using Irrigating Substance, Via Natural or Artificial Opening (ICD-10-PCS; principal; 2018-03-04)
DX: H61.22 Impacted cerumen, left ear (principal)
CPT/HCPCS: 99281-25

== ENCOUNTER 2019-01-25 10:56 | Emergency (ER) | payer OTHER, BC ==
[2019-01-25 11:12] VITALS: TEMP 98.4; BMI 40.4
[2019-01-25] MEDS ORDERED: RANITIDINE HCL 150 MG TABLET (FP) PO ONE (11:51)
[2019-01-25] MEDS ORDERED: MAG HYDROX/AL HYDROX/SIMETH 30 ML UNIT-DOSE CUP PO ONE (11:52)
--- NOTE | 2019-01-25 11:58 | PDOC ---
History of Present Illness <Martha Marte - Last Filed: 01/25/19 13:11> - General History Source: Patient - History of Present Illness Timing/Duration: reports: intermittent Quality: reports: cramping <Deyanira Dorado - Last Filed: 01/25/19 13:48> - General Chief Complaint: Pain, Acute Stated Complaint: LOWER BACK PAIN/ ABD PAIN Time Seen by Provider: 01/25/19 11:46 Past History <Martha Marte - Last Filed: 01/25/19 13:11> - Past Medical History Anemia: No Asthma: No Cancer: No Cardiac Disorders: No CVA: No COPD: No CHF: No Dementia: No Diabetes: No GI Disorders: Yes Disorders: No HTN: Yes Hypercholesterolemia: Yes Liver Disease: No Seizures: No Thyroid Disease: No - Surgical History Abdominal Surgery: No Appendectomy: No Cardiac Surgery: No Cholecystectomy: No Lung Surgery: No Neurologic Surgery: No Orthopedic Surgery: No - Immunization History Immunization Up to Date: No - Suicide/Smoking/Psychosocial Hx Smoking Status: No Smoking History: Never smoked Have you smoked in the past 12 months: No Number of Cigarettes Smoked Daily: 0 If you are a former smoker, when did you quit?: 1999 Information on smoking cessation initiated: No Hx Alcohol Use: No Drug/Substance Use Hx: No Substance Use Type: None Hx Substance Use Treatment: No <Deyanira Dorado - Last Filed: 01/25/19 13:48> - Past Medical History Allergies/Adverse Reactions: Allergies Allergy/AdvReac Type Severity Reaction Status Date / Time No Known Drug Allergies Allergy Verified 03/04/18 19:22 Home Medications: Ambulatory Orders Montelukast Na [Singulair -] 10 mg PO DAILY 05/22/15 Atorvastatin Ca [Lipitor] 20 mg PO HS 01/13/18 Acetaminophen/Caffeine/Butalb [Fioricet -] 1 tablet PO Q8H PRN #30 tablet MDD 3 01/15/18 Atenolol [Tenormin -] 50 mg PO DAILY #30 tablet 01/15/18 Ciprofloxacin HCl/Dexameth [Ciprodex Otic Suspension] 4 drop BID 5 Days #1 bottle 03/04/18 Furosemide [Lasix -] 20 mg PO DAILY 03/04/18 Irbesartan 150 mg PO ASDIR 03/04/18 Famotidine [Pepcid] 20 mg PO BID #28 tablet 01/25/19 Mag Hydrox/Al Hydrox/Simeth [Mylanta Suspension -] 30 ml PO Q6H #1 bottle Sucralfate [Carafate -] 1 gm PO BID #14 tablet 01/25/19 Review of Systems - Review of Systems Constitutional: No: Chills, Fever ABD/GI: Yes: Abdominal cramping. No: Blood Streaked Bowels, Constipated, Diarrhea, Rectal Bleeding, Vomiting, Tarry Stools : No: Dysuria, Flank Pain, Hematuria <Deyanira Dorado - Last Filed: 01/25/19 13:48> *Physical Exam - Vital Signs Last Vital Signs Temp Pulse Resp BP Pulse Ox 98.4 F 56 L 16 198/92 H 96 01/25/19 11:09 01/25/19 11:09 01/25/19 11:09 01/25/19 11:09 01/25/19 11:09 <Martha Marte - Last Filed: 01/25/19 13:11> - Vital Signs Last Vital Signs Temp Pulse Resp BP Pulse Ox 98.4 F 56 L 16 198/92 H 96 01/25/19 11:09 01/25/19 11:09 01/25/19 11:09 01/25/19 11:09 01/25/19 11:09 - Physical Exam General Appearance: Yes: Appropriately Dressed. No: Apparent Distress HEENT: positive: Normal Voice Neck: positive: Supple Respiratory/Chest: positive: Lungs Clear, Normal Breath Sounds. negative: Respiratory Distress Cardiovascular: positive: Regular Rate, S1, S2 Gastrointestinal/Abdominal: positive: Normal Bowel Sounds, Soft. negative: Tender, Distended, Guarding Musculoskeletal: negative: CVA Tenderness Integumentary: positive: Dry, Warm Neurologic: positive: Fully Oriented, Alert, Normal Mood/Affect <Deyanira Dorado - Last Filed: 01/25/19 13:48> ED Treatment Course - LABORATORY CBC & Chemistry Diagram: 01/25/19 12:00 01/25/19 12:00 - ADDITIONAL ORDERS Additional order review: Laboratory Results 01/25/19 01/25/19 01/25/19 12:44 12:00 12:00 Sodium 142 Potassium 4.2 Chloride 110 H Carbon Dioxide 26 Anion Gap 6 L BUN 18.1 H Creatinine 0.9 Est GFR (CKD-EPI)AfAm 76.14 Est GFR (CKD-EPI)NonAf 65.70 Random Glucose 93 Calcium 9.4 Total Bilirubin 0.3 AST 24 ALT 34 Alkaline Phosphatase 74 Total Protein 7.4 Albumin 4.0 Lipase 194 Urine Color Yellow Urine Appearance Clear Urine pH 6.5 Ur Specific [place] 1.007 L Urine Protein Negative Urine Glucose (UA) Negative Urine Ketones Negative Urine Blood Negative Urine Nitrite Negative Urine Bilirubin Negative Urine Urobilinogen 0.2 Ur Leukocyte Esterase Negative 01/25/19 12:00 RBC 5.43 H MCV 82.9 MCHC 33.0 RDW 14.4 MPV 9.2 Neutrophils % 64.6 Lymphocytes % 24.2 Monocytes % 7.9 Eosinophils % 2.1 Basophils % 1.2 - Medications Given in the ED: ED Medications Discontinued Medications Generic Name Dose Route Start Last Admin Trade Name Freq PRN Reason Stop Dose Admin Al Hydroxide/Mg Hydroxide 30 ml 01/25/19 11:52 01/25/19 12:27 Mylanta Oral Suspension - PO 01/25/19 11:53 30 ml ONCE ONE Administration Ranitidine HCl 150 mg 01/25/19 11:51 01/25/19 12:26 Zantac - PO 01/25/19 11:52 150 mg ONCE ONE Administration <Martha Marte - Last Filed: 01/25/19 13:11> - LABORATORY CBC & Chemistry Diagram: 01/25/19 12:00 01/25/19 12:00 <Deyanira Dorado - Last Filed: 01/25/19 13:48> Medical Decision Making - Medical Decision Making The patient was seen and evaluated in conjunction with midlevel provider under my direct supervision, ancillary studies were reviewed. I agree with the plan as outlined NISH Dorado. HPI, workup/dispo as outlined. VS reviewed, wnl. labs/ workup wnl, given meds/supportive measures. anticipate discharge, pcp followup, return precautions 01/25/19 13:11 <Martha Marte - Last Filed: 01/25/19 13:11> - Medical Decision Making 01/25/19 11:52 68 yo morbidly obesed female, w/ h/o asthma, HTN, renal stones, here w/ diffuse abd pain, worse to upper abd, and only worsens after po intake x 1 week. States pain crampy in nature, 2-3/10 and usually resolves "after my food is digested" . No excessive belching, change in bowel movements, BRBPR, dysuria, nausea, vomiting, fever or chills. No h/o similar pain See exam Possible gastritis vs biliary, less likely pancreatitis, diverticulitis, ischemia, UTI/pyelo or recurrent renal stones Well gilberto and stable w/ no sig ttp on abd exam -labs -GI cocktail>reassess 01/25/19 13:04 Labs unremarkable. Pt reports significant improvement with meds and now requesting food. Abdomen remains benign on repeat exam 01/25/19 13:25 After eating in ED patient states pain returned, but now subsiding. Abdomen remains benign. Rpt NATHAN 145/90. Case discussed with ED attending, will dc with meds and give GI follow-up. Reasons to return to ER discussed with patient 01/25/19 13:48 <Deyanira Dorado - Last Filed: 01/25/19 13:48> *DC/Admit/Observation/Transfer <MarteMarthamike Galeana - Last Filed: 01/25/19 13:11> <Deyanira Dorado - Last Filed: 01/25/19 13:48> Diagnosis at time of Disposition: Upper abdominal pain - Discharge Dispostion Disposition: HOME Condition at time of disposition: Improved - Prescriptions Prescriptions: Famotidine [Pepcid] 20 mg PO BID #28 tablet Mag Hydrox/Al Hydrox/Simeth [Mylanta Suspension -] 30 ml PO Q6H #1 bottle Sucralfate [Carafate -] 1 gm PO BID #14 tablet - Referrals Referrals: Adam Hoang MD [Staff Physician] - Boubacar Miguel DO [Staff Physician] - Ravi Morse MD [Staff Physician] - - Patient Instructions Additional Instructions: The cause of your symptoms are unclear, but might be gastritis/GERD. You will need to follow-up with GI for further evaluation. You were given 3 names. Please follow-up with M.Ziyad. who accepts your insurance In the meantime, take medications as prescribed and return to ER
[2019-01-25 12:17] LABS: BASO % 1.2 % (0-2.0); EOS % 2.1 % (0-4.5); HEMOGLOBIN 14.9 GM/dL (10.7-15.3); LYMPH % 24.2 % (8-40); MCH 27.4 pg (25.7-33.7); MEAN CELL VOLUME 82.9 fl (80-96); MEAN PLT VOLUME 9.2 fl (7.5-11.1); MONO % 7.9 % (3.8-10.2); NEUT % 64.6 % (42.8-82.8); PLATELET COUNT 238 K/MM3 (134-434); RBC 5.43 M/mm3 (3.60-5.2); RDW 14.4 % (11.6-15.6); WHITE BLOOD COUNT 6.7 K/mm3 (4.0-10.0)
[2019-01-25] MEDS ORDERED: MAG HYDROX/AL HYDROX/SIMETH 30 ML UNIT-DOSE CUP ONE (12:24)
[2019-01-25] MEDS ORDERED: RANITIDINE HCL 150 MG TABLET (FP) ONE (12:24)
[2019-01-25 12:52] LABS: BILIRUBIN,TOTAL 0.3 mg/dL (0.2-1); BLOOD UREA NITROGEN 18.1 mg/dL (7-18); CALCIUM 9.4 mg/dL (8.5-10.1); CREATININE 0.9 mg/dL (0.55-1.3); POTASSIUM 4.2 mmol/L (3.5-5.1); TOT PROT 7.4 g/dl (6.4-8.2)
[2019-01-25 13:08] LABS: PH,URINE 6.5 (5.0-8.0); URINE APPEARANCE CLEAR; URINE BILIRUBIN NEGATIVE (NEGATIVE); URINE COLOR YELLOW; URINE GLUCOSE (UA) NEGATIVE (NEGATIVE); URINE KETONE NEGATIVE (NEGATIVE); URINE LEUK ESTERASE NEGATIVE (NEGATIVE); URINE NITRITE NEGATIVE (NEGATIVE); URINE PROTEIN NEGATIVE (NEGATIVE); URINE UROBILINOGEN 0.2 mg/dL (0.2-1.0)
[2019-01-25 13:36] VITALS: BP 182/68; PULSE 58
== END 2019-01-25 13:36 | disposition home or self-care (01) ==
LOC: JER 10:56
DX: R10.10 Upper abdominal pain, unspecified (principal); I10 Essential (primary) hypertension; E78.00 Pure hypercholesterolemia, unspecified; J45.909 Unspecified asthma, uncomplicated; E66.9 Obesity, unspecified; Z68.41 Body mass index [BMI] 40.0-44.9, adult
CPT/HCPCS: 36415; 80053; 81003; 83690; 85025; 99283-25